=== PATIENT | female | born 1950 | race Caucasian/White ===

== ENCOUNTER 2020-08-02 08:34 | Emergency (ER) | payer MEDICARE ==
[~2020-08-02] VITALS: Ht 165.1 cm; Wt 64.3 kg
[2020-08-02] MEDS ORDERED: ALPR0.5T3 (08:53)
[2020-08-02] MEDS ORDERED: LISI-538 (08:53)
--- NOTE | 2020-08-02 09:19 | REP ---
INDICATION: chest pain. COMPARISON: PA and lateral chest dated 04/09/2012. TECHNIQUE: Single AP view of the chest performed portably with the patient sitting. FINDINGS: The lung luong are clear. Cardiac size is normal. The romel, mediastinum and skeletal structures are unremarkable. There is lumbar scoliosis convex right, unchanged. IMPRESSION: Essentially negative portable chest <Electronically signed by Garland Rhoades > 08/02/20 0915
[2020-08-02 10:32] LABS: HEMATOCRIT 37.8 % (36.0-47.0); HEMOGLOBIN 12.4 g/dl (12.0-15.5); MEAN CORPUSCULAR HEMOGLOBIN 31.2 pg (27.0-33.0); MEAN CORPUSCULAR HGB CONC 32.8 g/dl (32.0-36.5); MEAN CORPUSCULAR VOLUME 95.2 fl (80.0-96.0); PLATELET COUNT, AUTOMATED 268 10^3/uL (150-450); RED BLOOD COUNT 3.97 10^6/uL (4.00-5.40); WHITE BLOOD COUNT 5.2 10^3/uL (4.0-10.0)
[2020-08-02 10:44] LABS: BLOOD UREA NITROGEN 10 MG/DL (7-18); CALCIUM LEVEL 9.1 MG/DL (8.8-10.2); CARBON DIOXIDE LEVEL 29 MEQ/L (21-32); CHLORIDE LEVEL 110 MEQ/L (98-107); CK-MB VALUE MASS 1.1 NG/ML (<3.6); CPK CREATINE PHOSPHOKINASE 77 U/L (26-192); GLOMERULAR FILTRATION RATE > 60.0 (>39); GLUCOSE, FASTING 96 MG/DL (70-100); MB/CK RELATIVE INDEX 1.43 (< OR =4); POTASSIUM SERUM 4.2 MEQ/L (3.5-5.1); SODIUM LEVEL 142 MEQ/L (136-145); TROPONIN I < 0.02 NG/ML (< 0.10)
[2020-08-02 11:11] LABS: ALT/SGPT 23 U/L (12-78); C REACTIVE PROTEIN QUANTITATIV 0.31 MG/DL (0.00-0.30); FERRITIN 43 NG/ML (8-252); LDH LACTATE DEHYDROGENASE 179 U/L (84-246)
[2020-08-02 12:02] VITALS: BP 155/73
--- NOTE | 2020-08-03 09:25 | ECGEPIP ---
[facility] - ED Test Date: 2020-08-02 Pat Name: AUBREY WINTERS Department: Room: - Gender: Female [employer]: linsey : 1950 Requested By: Jhon Barrera Order Number: [id number] Reading MD: Gemini Berger Measurements Intervals [place] Rate: 66 P: 67 MS: 215 QRS: 28 QRSD: 86 T: 56 QT: 402 QTc: 422 Interpretive Statements SINUS RHYTHM WITH FIRST DEGREE AV BLOCK WITH OCCASIONAL SUPRAVENTRICULAR PREMATURE COMPLEXES NSTTW abnormalities No prior Electronically Signed on 08-03-2020 9:25:20 EST by Gemini Berger
== END 2020-08-02 12:08 | disposition home or self-care (01) ==
LOC: M ED 08:34
DX: J06.9 Acute upper respiratory infection, unspecified (principal); I10 Essential (primary) hypertension; F41.9 Anxiety disorder, unspecified; Z79.899 Other long term (current) drug therapy

== ENCOUNTER 2020-08-12 08:41 | Emergency (ER) | payer MEDICARE ==
[~2020-08-12] VITALS: Ht 165.1 cm; Wt 62.4 kg
[~2020-08-12 08:41] MED LIST: ALPR0.5T3; LISI-538
[2020-08-12 08:42] VITALS: BP 154/66
[2020-08-12] MEDS ORDERED: LIVA1TAB PO (08:53)
[2020-08-12] MEDS ORDERED: VITA-157 PO (08:53)
[2020-08-12] MEDS ORDERED: NS 500 ML IV ONE (09:30)
[2020-08-12] MEDS ORDERED: KETOROLAC 30 MG/ML 1ML VIAL IV ONE (09:30)
[2020-08-12 09:44] LABS: HEMATOCRIT 38.3 % (36.0-47.0); HEMOGLOBIN 12.4 g/dl (12.0-15.5); LYMPH # 0.8 10^3/uL (1.5-5.0); LYMPH % 22.4 % (24.0-44.0); MEAN CORPUSCULAR HEMOGLOBIN 29.7 pg (27.0-33.0); MEAN CORPUSCULAR HGB CONC 32.4 g/dl (32.0-36.5); MEAN CORPUSCULAR VOLUME 91.8 fl (80.0-96.0); MONO # 0.3 10^3/uL (0.0-0.8); MONO % 7.2 % (0.0-5.0); NEUTROPHILS # 2.5 10^3/uL (1.5-8.5); NEUTROPHILS % 70.1 % (36.0-66.0); PLATELET COUNT, AUTOMATED 184 10^3/uL (150-450); RED BLOOD COUNT 4.17 10^6/uL (4.00-5.40); WHITE BLOOD COUNT 3.6 10^3/uL (4.0-10.0)
[2020-08-12 09:51] LABS: RSV AMPLIFICATION NEGATIVE (NEGATIVE)
[2020-08-12 10:12] LABS: INR 0.92; PROTHROMBIN TIME 12.5 SECONDS (12.5-14.3)
[2020-08-12 10:13] LABS: PARTIAL THROMBOPLASTIN TIME 27.4 SECONDS (24.2-38.5)
[2020-08-12 10:25] LABS: ALBUMIN 3.8 GM/DL (3.2-5.2); ALT/SGPT 36 U/L (12-78); BILIRUBIN,TOTAL 0.3 MG/DL (0.2-1.0); BLOOD UREA NITROGEN 8 MG/DL (7-18); CALCIUM LEVEL 8.9 MG/DL (8.8-10.2); CARBON DIOXIDE LEVEL 24 MEQ/L (21-32); CHLORIDE LEVEL 101 MEQ/L (98-107); CREATININE FOR GFR 0.78 MG/DL (0.55-1.30); GLOMERULAR FILTRATION RATE > 60.0 (>39); GLUCOSE, FASTING 126 MG/DL (70-100); POTASSIUM SERUM 4.2 MEQ/L (3.5-5.1); SODIUM LEVEL 134 MEQ/L (136-145); TOTAL PROTEIN 7.2 GM/DL (6.4-8.2)
[2020-08-12 11:31] LABS: MONO SCRN NEGATIVE (NEGATIVE)
== END 2020-08-12 12:33 | disposition home or self-care (01) ==
LOC: M ED 08:41
DX: U07.1 COVID-19 (principal); I10 Essential (primary) hypertension; E78.5 Hyperlipidemia, unspecified; Z79.899 Other long term (current) drug therapy
CPT/HCPCS: 80053; 85025; 85610; 85730; 86308; 87631; 96374; 99284; J1885; M0243

== ENCOUNTER 2020-08-12 12:23 | Outpatient (CLI) | payer MEDICARE ==
[~2020-08-12] VITALS: Ht 165.1 cm; Wt 61.4 kg
[~2020-08-12 12:23] MED LIST changes: +ALBUTEROL 90 MCG/ACT 8GM HFA INHALER INH PRN; +ALBUTEROL SULFATE 2.5 MG/0.5 ML INH NEB SOLN INH PRN; +EPINEPHrine INJ 1 MG/ML 1ML AMP IM PRN; +LIVA1TAB PO; +NS 1,000 ML IV SCH; +VITA-157 PO; +diphenhydrAMINE 50MG/ML VIAL (J1200) IV PRN; +methylPREDNISolone 125MG 2ML VIAL IV PRN
[2020-08-12 12:39] VITALS: BP 160/72
[2020-08-12] MEDS ORDERED: CASIRIVIMAB (REGN10933) 1,200 MG, IMDEVIMAB (REGN10987) 1,200 MG in NS 230 ML IV ONE (13:00)
[2020-08-12 13:13] VITALS: BP 135/68
[2020-08-12 13:30] VITALS: BP 138/65
--- NOTE | 2020-08-12 13:37 | HPEPDOC ---
[facility] Medical History & Physical Date of Admission Aug 12, 2020 Date of Service: Aug 12, 2020 History and Physical Chief complaint: Presented to the emergency room with complaints of decreased oral intake and fatigue History of present illness: Patient is a 70-year-old female presented to the emergency room after she experienced worsening fatigue associated with decreased oral intake. Patient has reported fevers at home that she documented at 100.9 F patient has reported associated chills. She denies any chest pain, palpitations, shortness breath or cough. Has not experienced any vomiting, but does experience nausea and upset stomach. Denies any abdominal pain, constipation, diarrhea, or urinary discomfort. Of note, patient has been in the ER on 08/02 for what she had reported chest pain. Patient was found to have anxiety with a negative cardiac workup and was sent home. She has had an uneventful few days, however, has experience these symptoms over the last 4 days. Upon arrival to emergency room today. Patient was found to be COVID19 positive. Hospital services call, to provide outpatient infusion of monoclonal antibodies. 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 Review of Systems: 10 point review of systems complete, all negative otherwise stated in HPI Physical exam: - Vitals: BP [135/68], HR [67], RR [18], Sat [97%RA], Temp [98.2F] - General: Lying in bed, No acute distress, Speaking in full sentences, AAOx3 - HEENT: NC, AT, PERRLA - CVS: RRR, +S1S2, - Murmurs / rubs / gallops - Lungs: Fair air entry bilaterally, No appreciable wheezing / rales / rhonchi - Abdomen: Soft, Non-distended, Non-tender - Extremities: No lower extremity edema, No calf tenderness - Neuro: No focal motor or sensory deficit - Skin: No visible rashes Labs: See below Imaging: See below EKG: See below Assessment and Plan: COVID19 infection - Patient presented to the emergency room with symptoms of decreased oral intake and fatigue - Patient is hemodynamically stable and afebrile - Saturating well on room air - Physical unrevealing - Lab work does not reveal any significant abnormalities - Will provide infusion of Casirivimab; patient has been advised of the risks of pursuing this therapy if she has agreed and understands she has signed a consent paperwork and read the face sheet that has been provided to her by the ER - After infusion patient will be monitored for hypersensitivity reactions and then will be subsequently discharged with instruction to follow up with primary care provider Hypertension - Blood pressure remains well controlled; will continue home regimen Dyslipidemia - Will be continuing home regimen Anxiety - Will be continuing home regimen Disposition: - Patient has been advised to follow-up with primary care provider within the next 7 days after discharge Vital Signs Vital Signs Date Time Temp Pulse Resp B/P (MAP) Pulse Ox O2 Delivery O2 Flow Rate FiO2 08/12/20 13:13 98.2 67 18 135/68 (90) 97 Room Air Home Medications Scheduled Pitavastatin Calcium (Livalo) 1 Mg Tablet, 1 TAB PO DAILY Vitamin E (Dl,Tocopheryl Acet) (Vitamin E) 400 Unit Capsule, 1 CAP PO DAILY Miscellaneous Medications Alprazolam (Alprazolam) 0.5 Mg Tablet Lisinopril (Lisinopril) 20 Mg Tablet Allergies Coded Allergies: No Known Allergies (Unverified , 08/02/20) MARLON TALAVERA MD Aug 12, 2020 13:37
[2020-08-12 14:00] VITALS: BP 159/70
[2020-08-12 14:15] VITALS: BP 161/74
[2020-08-12 15:15] VITALS: BP 154/76
== END 2020-08-12 15:18 ==
LOC: M ICU 12:23 → M OPCLIICU 12:23
PROVIDERS: ATTEND Internal Medicine
DX: U07.1 COVID-19 (principal)

== ENCOUNTER → 2023-05-04 | Outpatient (REF) | payer MEDICARE ==
[~2023-05-04] MED LIST changes: -ALBUTEROL 90 MCG/ACT 8GM HFA INHALER INH PRN; -ALBUTEROL SULFATE 2.5 MG/0.5 ML INH NEB SOLN INH PRN; -EPINEPHrine INJ 1 MG/ML 1ML AMP IM PRN; -LISI-538; +LISI20TA33; -NS 1,000 ML IV SCH; -VITA-157 PO; +VITAE40CA PO; -diphenhydrAMINE 50MG/ML VIAL (J1200) IV PRN; -methylPREDNISolone 125MG 2ML VIAL IV PRN
[2023-05-04 12:59] LABS: BASO # 0.1 10^3/uL (0.0-0.2); EOS % 0.2 % (0.0-3.0); HEMATOCRIT 36.1 % (36.0-47.0); HEMOGLOBIN 11.9 g/dl (12.0-15.5); LYMPH # 2.2 10^3/uL (1.5-5.0); LYMPH % 42.6 % (24.0-44.0); MEAN CORPUSCULAR HEMOGLOBIN 30.5 pg (27.0-33.0); MEAN CORPUSCULAR VOLUME 92.6 fl (80.0-96.0); MONO # 0.4 10^3/uL (0.0-0.8); MONO % 7.7 % (2.0-8.0); NEUTROPHILS # 2.5 10^3/uL (1.5-8.5); NEUTROPHILS % 48.3 % (36.0-66.0); PLATELET COUNT, AUTOMATED 294 10^3/uL (150-450); WHITE BLOOD COUNT 5.2 10^3/uL (4.0-10.0)
[2023-05-04 13:02] LABS: BLOOD UREA NITROGEN 17 MG/DL (9-23); CALCIUM LEVEL 9.4 MG/DL (8.3-10.6); CARBON DIOXIDE LEVEL 31 MMOL/L (20-31); CHLORIDE LEVEL 103 MMOL/L (98-107); CHOLESTEROL LEVEL 156 MG/DL (<200); CHOLESTEROL RISK RATIO 3.19 (<5); CREATININE FOR GFR 0.84 MG/DL (0.55-1.30); GLOMERULAR FILTRATION RATE > 60.0 (>39); GLUCOSE, FASTING 96 MG/DL (74-106); HDL CHOLESTEROL 48.8 MG/DL (>40); NON-HDL-C 107.2 MG/DL; POTASSIUM SERUM 5.1 MMOL/L (3.5-5.1); SODIUM LEVEL 140 MMOL/L (136-145); TRIGLYCERIDES LEVEL 146 MG/DL (<150)
[2023-05-04 13:03] LABS: TOTAL 25(OH) VITAMIN D 43.3 NG/ML (20.0-100.0)
== END ==
LOC: M LABDRWAD 12:13
DX: E78.5 Hyperlipidemia, unspecified (principal); I10 Essential (primary) hypertension; E55.9 Vitamin D deficiency, unspecified; Z79.899 Other long term (current) drug therapy

== ENCOUNTER → 2025-07-10 | Outpatient (CLI) | payer MEDICARE | LOC: M WHC 13:07 | PROVIDERS: ATTEND Family Medicine | DX: M81.0 Age-related osteoporosis without current pathological fracture (principal) ==